=== PATIENT | male | born 1980 | race Caucasian/White ===

== ENCOUNTER 2022-01-15 14:59 | Emergency (ER) | payer MEDICAID ==
[~2022-01-15] VITALS: Ht 177.8 cm; Wt 68.2 kg
[~2022-01-15 14:59] MED LIST: ALPR-624 PO; ESOM40CA49 PO; PANT-47 PO; SUCR1ORA2 PO; TELM40TA4 PO; TELM40TA8 PO; TEST200V33 IM
[2022-01-15 15:10] VITALS: BP 118/92
== END 2022-01-15 16:25 ==
LOC: ER 14:59
DX: F15.959 Other stimulant use, unspecified with stimulant-induced psychotic disorder, unspecified (principal); F12.90 Cannabis use, unspecified, uncomplicated
CPT/HCPCS: 99283

== ENCOUNTER 2024-01-25 12:45 | Emergency (ER) | payer MEDICAID ==
[~2024-01-25] VITALS: Ht 175.3 cm; Wt 87.3 kg
[2024-01-25] MEDS: ibuprofen tablet 400 MG TABLET PO STA (14:44)
[2024-01-25] MEDS: acetaminophen 325mg tablet PO ONE (14:44)
[2024-01-25] MEDS: amLODIPine 5mg tablet PO ONE (14:46)
[2024-01-25] MEDS ORDERED: TELM40TA8 PO (15:06)
[2024-01-25 15:07] VITALS: BP 170/96; PULSE 90; RESP 16; TEMP 98; O2SAT 99
== END 2024-01-25 15:08 | disposition home or self-care (01) ==
LOC: ER 12:45
DX: I10 Essential (primary) hypertension (principal); F41.9 Anxiety disorder, unspecified; F12.90 Cannabis use, unspecified, uncomplicated; Z79.899 Other long term (current) drug therapy; Z72.89 Other problems related to lifestyle
CPT/HCPCS: 99284